=== PATIENT | male | born 1985 | race Caucasian/White ===

== ENCOUNTER 2017-05-05 23:48 | Emergency (ER) | payer OTHER ==
[~2017-05-05] VITALS: Ht 170.2 cm; Wt 83.2 kg
[~2017-05-05 23:48] MED LIST: SUCR1TAB PO
[2017-05-06] MEDS ORDERED: MORPHINE SULFATE 4 MG/ML, 1ML ONE ×2 (00:48→01:47)
[2017-05-06] MEDS ORDERED: ONDANSETRON 2MG/ML, 2ML ONE (00:48)
[2017-05-06] MEDS: MORPHINE SULFATE 4 MG/ML, 1ML IVPush PRN ×2 (00:57→02:08)
[2017-05-06] MEDS ORDERED: SODIUM CHLORIDE 0.9% 1,000ML IVBOLUS ONE (01:00)
[2017-05-06] MEDS ORDERED: SODIUM CHLORIDE FLUSH 10ML SYR IVF ONE (01:00)
[2017-05-06] MEDS ORDERED: ONDANSETRON 2MG/ML, 2ML IVPush ONE (01:00)
[2017-05-06] MEDS ORDERED: PROMETHAZINE 25 MG/ML, 1ML ONE (02:24)
[2017-05-06] MEDS ORDERED: PROMETHAZINE 25 MG/ML, 1ML IM ONE (02:30)
[2017-05-06 03:35] VITALS: BP 138/88
== END 2017-05-06 04:31 | disposition home or self-care (01) ==
LOC: ED 05-06 00:47
DX: G89.11 Acute pain due to trauma (principal); R51 Headache; T81.89XA Other complications of procedures, not elsewhere classified, initial encounter; K21.9 Gastro-esophageal reflux disease without esophagitis; Z98.890 Other specified postprocedural states
CPT/HCPCS: 96372; 96374; 96375; 96376; 99284; J2405; J2550; J7030